=== PATIENT | male | born 1950 | race Two or more races ===

== ENCOUNTER 2018-03-22 10:42 | Outpatient (CLI) | payer OTHER | END 2018-03-22 10:58 | disposition home or self-care (01) | LOC: RAD 10:42 | DX: M72.2 Plantar fascial fibromatosis (principal) ==

== ENCOUNTER 2022-05-26 15:04 | Outpatient (CLI) | payer OTHER | END 2022-05-26 15:14 | disposition home or self-care (01) | LOC: PPH VACUNA 15:04 | PROVIDERS: ATTEND Emergency Medicine Pediatric Emergency Medicine | DX: Z23 Encounter for immunization (principal) ==

== ENCOUNTER → 2023-08-21 | Day surgery (SDC) | payer OTHER ==
[~2023-08-21] MED LIST: MIDAZOLAM HCL 2 MG/2 ML VIAL IV ONE; fentaNYL CITRATE 50 MCG/ML AMPUL IV PUSH ONE
== END | disposition home or self-care (01) ==
LOC: AMB-ENDOS 08-16 17:29
PROVIDERS: ATTEND Colon & Rectal Surgery
DX: D12.6 Benign neoplasm of colon, unspecified (principal); Z86.010 Personal history of colon polyps